=== PATIENT | female | born 1995 ===

== ENCOUNTER 2022-04-16 18:04 | Inpatient (IN) ==
[2022-04-16] MEDS ORDERED: ONDANSETRON 4 MG/2 ML VIAL IV ONE (19:14)
[2022-04-16] MEDS ORDERED: MORPHINE 2 MG/1 ML SYRINGE IV STA (19:14)
[2022-04-16] MEDS ORDERED: ONDANSETRON 4 MG/2 ML VIAL IV PRN (19:33)
[2022-04-16 19:45] LABS: Basophils % 0.1 % (0.0-0.8); Eosinophils % 0.2 % (0.00-10.9); Hematocrit 23.9 VOL% (35.7-47.0); Hemoglobin 7.3 GM/DL (12.0-16.0); Immature Granulocytes Absolute 0.12 #; Lymphocytes # 1.1 10*3/uL (1.4-4.0); Lymphocytes % 8.9 % (21.3-54.2); Mean Corpuscular HGB Conc 30.5 GM/DL (32-36); Mean Corpuscular Volume 77.6 FL (87-102); Mean Platelet Volume 9.2 FL (9.6-12.0); Monocytes # 0.2 10*3/uL (0.11-0.8); Monocytes % 1.2 % (1.7-12.7); Neutrophils % 88.6 % (38.7-73.9); Platelet Count 198 T/CUMM (130-400); Red Blood Count 3.08 MC/CUMM (3.8-5.5); Red Cell Distribution Width 24.4 % (9.3-17.3); White Blood Count 12.1 T/CUMM (4-12)
[2022-04-16 20:06] LABS: Anisocytosis 1+; Hypochromia 1+
[2022-04-16 20:07] LABS: Albumin 2.9 G/DL (3.4-5.0); Bilirubin,Total 0.7 MG/DL (0.20-1.00); Calcium 7.2 MG/DL (8.5-10.1); Osmolality,Calculated 281.3 MOS/KG (273-304); Platelet Estimate Adequate; Polychromasia Few; Potassium 3.2 MMOL/L (3.5-5.1); Schistocytes Few
[2022-04-16] MEDS: PIPERACILLIN/TAZOBACTAM 3,375 MG in SODIUM CHLORIDE 0.9% 100 ML IV SCH (20:39)
[2022-04-16] MEDS ORDERED: POTASSIUM CHLORIDE 20 MEQ TABLET PO STA (21:03)
[2022-04-16] MEDS ORDERED: INDOCYANINE GREEN 25 MG VIAL IV ONE (22:16)
[2022-04-17] MEDS: MORPHINE 2 MG/1 ML SYRINGE IV PRN ×4 (00:42→15:50)
[2022-04-17] MEDS: DEXTROSE 5% NACL 0.45% 1,000 ML IV SCH ×3 (00:45→16:30)
[2022-04-17] MEDS: PIPERACILLIN/TAZOBACTAM 3,375 MG in SODIUM CHLORIDE 0.9% 100 ML IV SCH ×2 (04:57→13:30)
[2022-04-17 06:09] LABS: Basophils % 0.2 % (0.0-0.8); Eosinophils # 0.2 10*3/uL (0.0-0.87); Eosinophils % 1.7 % (0.00-10.9); Hematocrit 25.4 VOL% (35.7-47.0); Hemoglobin 7.7 GM/DL (12.0-16.0); Immature Granulocytes % 0.7 %; Immature Granulocytes Absolute 0.08 #; Lymphocytes # 1.8 10*3/uL (1.4-4.0); Lymphocytes % 14.7 % (21.3-54.2); Mean Corpuscular HGB Conc 30.3 GM/DL (32-36); Mean Corpuscular Volume 78.6 FL (87-102); Mean Platelet Volume 10.2 FL (9.6-12.0); Monocytes # 0.1 10*3/uL (0.11-0.8); Monocytes % 1.2 % (1.7-12.7); Neutrophils % 81.5 % (38.7-73.9); Platelet Count 221 T/CUMM (130-400); Red Blood Count 3.23 MC/CUMM (3.8-5.5); Red Cell Distribution Width 25.1 % (9.3-17.3); White Blood Count 12.1 T/CUMM (4-12)
[2022-04-17 06:30] LABS: Albumin 3.1 G/DL (3.4-5.0); Bilirubin,Total 0.6 MG/DL (0.20-1.00); Osmolality,Calculated 279.4 MOS/KG (273-304); Potassium 3.3 MMOL/L (3.5-5.1); Total Protein 6.8 G/DL (6.4-8.2)
[2022-04-17 06:37] LABS: Anisocytosis 1+; Platelet Estimate Normal
[2022-04-17] MEDS ORDERED: INDOCYANINE GREEN 25 MG VIAL IV ONE (07:30)
[2022-04-17] MEDS: PANTOPRAZOLE 40 MG VIAL IV SCH (08:57)
[2022-04-17] MEDS ORDERED: TISSUE ADHESIVE 1 EACH APPLICATOR TOP ONE (11:31)
[2022-04-17] MEDS ORDERED: LIDOCAINE 1%/EPI INJ 20 ML VIAL ONE (11:31)
[2022-04-17] MEDS ORDERED: BUPIVACAINE MPF 0.25% 10 ML VIAL ONE (11:31)
[2022-04-17] MEDS ORDERED: LIDOCAINE 2% 5 ML VIAL ONE (11:55)
[2022-04-17] MEDS ORDERED: propofoL 200 MG/20 ML VIAL IV ONE (11:55)
[2022-04-17] MEDS ORDERED: MIDAZOLAM 2 MG/2 ML VIAL ONE (11:55)
[2022-04-17] MEDS ORDERED: fentaNYL 100 MCG/2 ML VIAL ONE ×2 (11:55→12:36)
[2022-04-17] MEDS ORDERED: ONDANSETRON 4 MG/2 ML VIAL ONE ×2 (11:55→12:37)
[2022-04-17] MEDS ORDERED: ROCURONIUM 50 MG/5 ML VIAL IV ONE (11:55)
[2022-04-17] MEDS ORDERED: SUCCINYLCHOLINE 200 MG/10 ML VIAL ONE (12:37)
[2022-04-17] MEDS ORDERED: DEXAMETHASONE 4 MG/1 ML VIAL ONE (12:37)
[2022-04-17] MEDS ORDERED: LACTATED RINGERS 1,000 ML IV ONE (13:40)
[2022-04-17] MEDS ORDERED: SUGAMMADEX 200 MG/2 ML VIAL IV ONE (13:45)
[2022-04-17] MEDS ORDERED: SEVOFLURANE 1 UNIT/15 MINUTE INH ONE (13:45)
[2022-04-17] MEDS ORDERED: HYDROmorphone 1 MG/1 ML SYRINGE IV PRN (14:24)
[2022-04-17] MEDS ORDERED: ONDANSETRON 4 MG/2 ML VIAL IV PRN (14:24)
[2022-04-17] MEDS ORDERED: LACTATED RINGERS 1,000 ML IV SCH (14:30)
[2022-04-17] MEDS ORDERED: KETOROLAC 30 MG/1 ML VIAL IV PRN (17:25)
[2022-04-17] MEDS: HYDROmorphone 1 MG/1 ML SYRINGE IV PRN (17:37)
[2022-04-17] MEDS: KETOROLAC 30 MG/1 ML VIAL IV SCH (18:56)
[2022-04-18] MEDS: KETOROLAC 30 MG/1 ML VIAL IV SCH ×4 (00:32→19:42)
[2022-04-18] MEDS: DEXTROSE 5% NACL 0.45% 1,000 ML IV SCH (00:34)
[2022-04-18 05:18] LABS: Eosinophils % 0.1 % (0.00-10.9); Hematocrit 22.3 VOL% (35.7-47.0); Hemoglobin 6.7 GM/DL (12.0-16.0); Immature Granulocytes % 1.1 %; Immature Granulocytes Absolute 0.08 #; Lymphocytes # 0.6 10*3/uL (1.4-4.0); Lymphocytes % 8.8 % (21.3-54.2); Mean Corpuscular Volume 80.5 FL (87-102); Mean Platelet Volume 10.1 FL (9.6-12.0); Monocytes # 0.1 10*3/uL (0.11-0.8); Monocytes % 1.4 % (1.7-12.7); Neutrophils % 88.6 % (38.7-73.9); Platelet Count 162 T/CUMM (130-400); Red Blood Count 2.77 MC/CUMM (3.8-5.5); White Blood Count 7.1 T/CUMM (4-12)
[2022-04-18 05:37] LABS: Calcium 7.4 MG/DL (8.5-10.1); Osmolality,Calculated 279.3 MOS/KG (273-304); Potassium 3.3 MMOL/L (3.5-5.1)
[2022-04-18] MEDS: HYDROmorphone 1 MG/1 ML SYRINGE IV PRN ×3 (07:16→20:56)
[2022-04-18] MEDS: ENOXAPARIN 30 MG/0.3 ML SYRINGE SUBCUT SCH (08:41)
[2022-04-18] MEDS: PANTOPRAZOLE 40 MG VIAL IV SCH (08:43)
[2022-04-18] MEDS: POTASSIUM CHLORIDE 20 MEQ TABLET PO PRN ×3 (10:20→15:17)
[2022-04-19] MEDS: KETOROLAC 30 MG/1 ML VIAL IV SCH ×4 (00:15→19:29)
[2022-04-19] MEDS: HYDROmorphone 1 MG/1 ML SYRINGE IV PRN ×2 (02:58→08:29)
[2022-04-19 03:50] LABS: Basophils % 0.2 % (0.0-0.8); Eosinophils # 0.2 10*3/uL (0.0-0.87); Hematocrit 21.5 VOL% (35.7-47.0); Hemoglobin 6.7 GM/DL (12.0-16.0); Immature Granulocytes % 0.7 %; Immature Granulocytes Absolute 0.04 #; Lymphocytes # 1.1 10*3/uL (1.4-4.0); Lymphocytes % 18.9 % (21.3-54.2); Mean Corpuscular HGB Conc 31.2 GM/DL (32-36); Mean Corpuscular Volume 78.8 FL (87-102); Mean Platelet Volume 9.9 FL (9.6-12.0); Monocytes # 0.1 10*3/uL (0.11-0.8); Monocytes % 1.8 % (1.7-12.7); Neutrophils % 75.4 % (38.7-73.9); Platelet Count 144 T/CUMM (130-400); Red Blood Count 2.73 MC/CUMM (3.8-5.5); Red Cell Distribution Width 25.6 % (9.3-17.3); White Blood Count 5.6 T/CUMM (4-12)
[2022-04-19 04:10] LABS: Eosinophils 4 % (0-10); Hypochromia Slight; Lymphocytes 20 % (20-55); Microcytosis Slight; Platelet Estimate Adequate; Total Cells Counted 100
[2022-04-19 04:13] LABS: Calcium 7.8 MG/DL (8.5-10.1); Osmolality,Calculated 280.1 MOS/KG (273-304); Potassium 3.3 MMOL/L (3.5-5.1)
[2022-04-19] MEDS: POTASSIUM CHLORIDE 20 MEQ TABLET PO PRN ×3 (05:02→08:28)
[2022-04-19] MEDS: PANTOPRAZOLE 40 MG VIAL IV SCH (08:27)
[2022-04-19] MEDS: ENOXAPARIN 30 MG/0.3 ML SYRINGE SUBCUT SCH (08:28)
[2022-04-20] MEDS: KETOROLAC 30 MG/1 ML VIAL IV SCH ×2 (01:04→06:04)
[2022-04-20] MEDS: HYDROmorphone 1 MG/1 ML SYRINGE IV PRN ×2 (04:06→07:53)
[2022-04-20 05:44] LABS: Basophils % 0.3 % (0.0-0.8); Eosinophils # 0.2 10*3/uL (0.0-0.87); Eosinophils % 5.8 % (0.00-10.9); Hematocrit 22.3 VOL% (35.7-47.0); Hemoglobin 6.8 GM/DL (12.0-16.0); Immature Granulocytes % 0.8 %; Immature Granulocytes Absolute 0.03 #; Lymphocytes % 27.4 % (21.3-54.2); Mean Corpuscular HGB Conc 30.5 GM/DL (32-36); Mean Corpuscular Volume 79.6 FL (87-102); Mean Platelet Volume 10.1 FL (9.6-12.0); Monocytes # 0.1 10*3/uL (0.11-0.8); Monocytes % 3.4 % (1.7-12.7); Neutrophils % 62.3 % (38.7-73.9); Platelet Count 146 T/CUMM (130-400); Red Cell Distribution Width 25.2 % (9.3-17.3); White Blood Count 3.8 T/CUMM (4-12)
[2022-04-20 06:02] LABS: Calcium 8.5 MG/DL (8.5-10.1); Osmolality,Calculated 276.4 MOS/KG (273-304); Potassium 3.8 MMOL/L (3.5-5.1)
[2022-04-20 06:08] LABS: Eosinophils 4 % (0-10); Hypochromia 1+; Lymphocytes 31 % (20-55); Total Cells Counted 100
[2022-04-20 06:09] LABS: Anisocytosis 1+; Microcytosis 1+; Platelet Estimate Adequate
[2022-04-20 07:38] VITALS: BP 117/81
[2022-04-20] MEDS: ENOXAPARIN 30 MG/0.3 ML SYRINGE SUBCUT SCH (07:53)
[2022-04-20] MEDS: PANTOPRAZOLE 40 MG VIAL IV SCH (08:00)
== END 2022-04-20 10:59 | disposition home or self-care (01) | DRG 419 ==
LOC: N.ED 18:04 → N.EDINP 18:04 → N.3E 20:50
PROVIDERS: ADMIT Surgery; ATTEND Surgery